=== PATIENT | female | born 1955 | race Caucasian/White ===

== ENCOUNTER 2017-02-23 13:47 | Observation (INO) | payer MEDICARE, OTHER ==
--- NOTE | ~2017-02-23 | HP ---
History And Physical [place] [id number] [facility] [place]. [address] NAME: BINTA BOSE : 55 STATUS : ADM Maia PAT#: [id number] AGE: 61 ADM/REG DATE : 02/23/17 MR#: [id number] REPORT SERV DATE: 02/23/17 DICTATED BY: EZEKIEL GROVER DATE: 02/23/17 REPORT STATUS : Draft TRANSCRIBED BY: MODL DATE: 02/23/17 DATE OF ADMISSION: 02/23/2017 CARDIOLOGY ADMISSION HISTORY AND PHYSICAL IDENTIFYING DATA: The patient is a 61-year-old woman with a history of myasthenia gravis on pyridostigmine and IVIG. CHIEF COMPLAINT: One year history of progressively worsening exertional burning type chest pain with radiation to the neck. HISTORY OF PRESENT ILLNESS: Ms. Bose is a 61-year-old woman with a history of myasthenia gravis. She has a roughly one year history of chest pain. She describes this as a burning substernal sensation which radiates to her neck, jaw, and ears. The patient has had previous cardiovascular workup, most recently including a pharmacologic stress with myocardial perfusion imaging performed at [facility]. The patient was seen in the emergency room at that facility. Myocardial infarction was apparently ruled out. The stress test was normal, and the patient was discharged to home. The patient was referred to Dr. Aaron Martinez by her primary care provider. It was Dr. Martinez's opinion that the patient most likely having symptoms related to either myasthenia gravis or treatment thereof or possibly gastroesophageal reflux disease. The patient has been placed on omeprazole, and takes Mylanta. She reports that these are not effective in eliminating her chest pain. She reports the chest pain is exertional and associated with shortness of breath, though she denies nausea or diaphoresis. She reports the chest pain is reliably relieved with sublingual nitroglycerin, though this causes headache and hypertension, the patient is reluctant to take nitroglycerin at home. She denies orthopnea, paroxysmal nocturnal dyspnea, palpitations, dizziness, or syncope. The patient and her report multiple emotional stressors recently, including the of the patient's brother who had Raysa Gehrig disease, as well as the recent anniversary of her son, who apparently was killed four years ago. PAST MEDICAL HISTORY: 1. Myasthenia gravis. 2. Hypertension. 3. Previous history of stroke, diagnosed with MRI. 4. Possible dyslipidemia. PAST SURGICAL HISTORY: 1. The patient has had a thymectomy for thymoma. 2. Total abdominal hysterectomy. 3. Cholecystectomy. 4. Right breast lumpectomy. 5. Bladder suspension. 6. Port-A-Cath placement. FAMILY HISTORY: The patient's father was diagnosed with coronary artery disease, and History And Physical [address] [address] NAME: BINTA BOSE : 55 STATUS : ADM Maia PAT#: [id number] AGE: 61 ADM/REG DATE : 02/23/17 MR#: [id number] REPORT SERV DATE: 02/23/17 DICTATED BY: EZEKIEL GROVER DATE: 02/23/17 REPORT STATUS : Draft TRANSCRIBED BY: DANIEL DATE: 02/23/17 underwent coronary artery bypass grafting surgery at approximately age 55. Her mother was diagnosed with ovarian cancer and eventually of complications related to this. SOCIAL HISTORY: The patient has a distant history of social smoking more than 30 years ago. She denies alcohol or drug use. She is with four children. ALLERGIES: THE PATIENT REPORTS AN IRON ALLERGY WHICH CAUSES FLANK PAIN, AND CHEST PAIN WITH IV THERAPY. HOME MEDICATIONS: 1. Amlodipine 5 mg p.o. daily. 2. Vitamin B12 1000 mcg intramuscular monthly. 3. Vasotec 20 mg p.o. daily. 4. Vitamin D 50,000 units p.o. Friday, Friday, and Friday. 5. Prozac 40 mg p.o. at bedtime. 6. Gabapentin 1600 mg p.o. three times daily. 7. IVIG administered q.[address] Grande. 8. Levothyroxine 125 mcg p.o. q.a.m. 9. Sublingual nitroglycerin 0.4 mg q.5 minutes p.r.n. chest pain. 10.Omeprazole 20 mg p.o. q.a.m. 11.Mestinon 60 mg p.o. five times daily. REVIEW OF SYSTEMS: A complete 12-system review was performed. This is noncontributory except for the pertinent positives and negatives noted in the history of present illness above. PHYSICAL EXAMINATION: VITAL SIGNS: Temperature is 98.2 degrees Fahrenheit, blood pressure is 140/67 mmHg, heart rate is 73 beats per minute and regular, respirations 18, and oxygen saturation is 96% on room air. CONSTITUTIONAL: The patient is an obese white woman, who appears mildly fatigued, but is otherwise normal, in no acute distress. EYES: PERRL, EOMI, clear conjunctiva. HEAD/MNT: NCAT with moist mucous membranes and grossly normal hard and soft palate. NECK: Supple with no obvious thyromegaly or lymphadenopathy CARDIOVASCULAR: Regular rhythm with normal S1 and physiologically split S2. No significant murmurs, rubs or gallops noted. PMI - normal location and character. Normal jugular venous pressure. No carotid bruits noted bilaterally. PULMONARY: Clear to auscultation bilaterally, no wheezing, rales or rhonchi noted. No dullness to percussion. Non-labored. ABDOMINAL: Soft, non-tender, non-distended with no hepatosplenomegaly noted. EXTREMITIES: No clubbing, cyanosis or edema. MUSCULOSKELETAL: Grossly normal strength and range of motion in all extremities INTEGUMENTARY: Skin appears intact with no bruises, wounds or active lesions noted NEURO/PSYC: Alert and oriented x3, with no dysarthria, facial droop or lateralizing weakness noted. History And Physical [address] [address] NAME: BINTA BOSE : 55 STATUS : ADM Maia PAT#: [id number] AGE: 61 ADM/REG DATE : 02/23/17 MR#: [id number] REPORT SERV DATE: 02/23/17 DICTATED BY: EZEKIEL GROVER DATE: 02/23/17 REPORT STATUS : Draft TRANSCRIBED BY: MODTerry DATE: 02/23/17 12-LEAD EKG: The 12-lead EKG shows normal sinus rhythm with no significant abnormality. CHEST X-RAY: The patient has a Port-A-Cath placed in the right subclavian position with its tip in the SVC. The x-ray is otherwise normal. LABORATORY DATA: The patient's white blood cell count is 7.4, hemoglobin 15, hematocrit 41, platelets 272. INR is 1.0. PTT is 32. Electrolytes shows a sodium of 138, potassium 4.0, chloride 105, CO2 of 31, BUN 11, creatinine 0.7, glucose 82, magnesium 2.2. Troponin is less than 0.02. ASSESSMENT AND PLAN: 1. Chest pain with features of unstable angina: At this time, the patient has had a noninvasive study which is normal. She continues to have multiple emergency room admissions for chest pain which has been refractory to medical therapy. I feel the most likely scenario is that the patient is experiencing symptoms related to IVIG or possibly pyridostigmine. However, the patient does have risk factors which include hypertension, positive family history, and possible peripheral arterial disease as evidenced by stroke. I have recommended cardiac catheterization for definitive diagnosis. Risks and benefits of coronary angiography including alternatives such as repeat stress testing with possible exercise stress testing were discussed with the patient. The patient does not feel she would be able to participate in an exercise treadmill stress test. She agrees to proceed with cardiac catheterization. This will be scheduled for tomorrow morning 02/25/2016. The patient will be started on aspirin 325 mg p.o. daily x1 and 81 mg daily thereafter. Should the patient prove to have coronary disease, we will make further recommendations. Should the patient's cardiac catheterization be normal, we will pursue a workup for a noncoronary etiology of the patient's symptoms. 2. Myasthenia gravis: At this time, the patient denies weakness, visual changes, or unusual dyspnea. 3. Hypertension: The patient will continue her current home medication regimen. We will consider increasing amlodipine dose if necessary for persistent hypertension. TRAMH/DALIAL Ezekiel Grover MD / [id number] CC: Ezekiel Grover MD
[2017-02-23 13:02] LABS: BASOPHILS 0.1 %; BASOPHILS ABSOLUTE 0.01 10/3/uL (0.0-0.16); EOSINOPHILS 3.4 %; EOSINOPHILS ABSOLUTE 0.25 10/3/uL (0.0-0.53); HEMATOCRIT 40.8 % (36.0-48.0); IMMATURE GRANULOCYTES 0.1 %; IMMATURE GRANULOCYTES ABSOLUTE 0.01 10/3/uL (0.0-0.11); MANUAL DIFF NO %; MEAN CORPUS HGB CONC 34.3 g/dL (32.0-36.0); MEAN CORPUSCULAR HEMOGLOB 29.7 pg (26.0-34.0); MEAN CORPUSCULAR VOLUME 86.4 fL (80-100); MONOCYTES 6.6 %; MONOCYTES ABSOLUTE 0.49 10/3/uL (0.21-1.20); NEUTROPHILS 50.8 %; NEUTROPHILS ABSOLUTE 3.77 10/3/uL (2.02-8.40); PLATELET COUNT 272 10/3/uL (150-400); RBC DISTRIBUTION WIDTH 12.6 % (12.0-16.0); RED CELL COUNT 4.72 10/6/uL (4.0-5.6); WHITE BLOOD CELLS 7.4 10/3/uL (4.5-10.5)
[2017-02-23 13:10] LABS: PARTIAL THROMBO TIME 31.9 SEC (22.5-37.2)
[2017-02-23 13:17] LABS: BUN (BLOOD UREA NITROGEN) 11 MG/DL (6-23); CALCIUM, SERUM 9.6 MG/DL (8.5-10.4); CHEST PAIN PROFILE TAT 0 Hrs 21 Mins; CHLORIDE, SERUM 105 MMOL/L (96-112); CO2 (CARBON DIOXIDE) 31 MMOL/L (24-34); CREATININE 0.69 MG/DL (0.55-1.02); GFR AFRICAN AMERICAN 109 ML/MIN (>=60); GFR NON AFRICAN AMERICAN 94 ML/MIN (>=60); GLUCOSE, SERUM 82 MG/DL (60-99); SODIUM, SERUM 138 MMOL/L (135-148); TROPONIN I <0.02 NG/ML (<0.05)
[2017-02-23] MEDS ORDERED: NORV5 PO (13:57)
[2017-02-23] MEDS ORDERED: PYRID60 PO (13:58)
[2017-02-23] MEDS ORDERED: LEVOTHYROXIN125 MCG PO (13:58)
[2017-02-23] MEDS ORDERED: VASOTEC20 MG PO (13:58)
[2017-02-23] MEDS ORDERED: NEUR800 PO (13:58)
[2017-02-23] MEDS ORDERED: B121000P IM (13:59)
[2017-02-23] MEDS ORDERED: VITD PO (13:59)
[2017-02-23] MEDS ORDERED: PRILO PO (13:59)
[2017-02-23] MEDS ORDERED: IVIGLIQ IV (14:00)
[2017-02-23] MEDS ORDERED: PROZAC40 MG PO (14:00)
[2017-02-23] MEDS ORDERED: NITROSTAT0.4 MG SL (14:01)
[2017-02-24 05:03] LABS: BASOPHILS 0.1 %; BASOPHILS ABSOLUTE 0.01 10/3/uL (0.0-0.16); EOSINOPHILS ABSOLUTE 0.27 10/3/uL (0.0-0.53); HEMATOCRIT 39.9 % (36.0-48.0); HEMOGLOBIN 13.3 g/dL (12.0-16.0); IMMATURE GRANULOCYTES 0.3 %; IMMATURE GRANULOCYTES ABSOLUTE 0.02 10/3/uL (0.0-0.11); LYMPHOCYTES 42.5 %; LYMPHOCYTES ABSOLUTE 2.84 10/3/uL (0.67-4.30); MEAN CORPUS HGB CONC 33.3 g/dL (32.0-36.0); MEAN CORPUSCULAR VOLUME 86.9 fL (80-100); MEAN PLATELET VOLUME 10.1 fL (9.2-13.0); MONOCYTES 6.6 %; MONOCYTES ABSOLUTE 0.44 10/3/uL (0.21-1.20); NEUTROPHILS 46.5 %; PLATELET COUNT 245 10/3/uL (150-400); RED CELL COUNT 4.59 10/6/uL (4.0-5.6); WHITE BLOOD CELLS 6.7 10/3/uL (4.5-10.5)
[2017-02-24 05:04] LABS: MANUAL DIFF NO %
[2017-02-24 05:14] LABS: BUN (BLOOD UREA NITROGEN) 10 MG/DL (6-23); CALCIUM, SERUM 9.4 MG/DL (8.5-10.4); CHLORIDE, SERUM 105 MMOL/L (96-112); CHOL/HDL RATIO(NOT ORDER) 4.4 (0-5); CHOLESTEROL 201 MG/DL (< 200); CO2 (CARBON DIOXIDE) 29 MMOL/L (24-34); CREATININE 0.74 MG/DL (0.55-1.02); GFR AFRICAN AMERICAN 101 ML/MIN (>=60); GFR NON AFRICAN AMERICAN 87 ML/MIN (>=60); GLUCOSE, SERUM 94 MG/DL (60-99); HDL CHOLESTEROL 46 MG/DL (> 49); LDL CHOLESTEROL 120 MG/DL (< 130); NON-HDL CHOLESTEROL 155 MG/DL (< 160); POTASSIUM, SERUM 3.7 MMOL/L (3.5-5.3); SODIUM, SERUM 140 MMOL/L (135-148); TRIGLYCERIDE 179 MG/DL (< 150)
[2017-02-24] MEDS ORDERED: LIPITOR40 (16:50)
[2017-02-24] MEDS ORDERED: IMDUR30 PO (16:51)
== END 2017-02-24 17:27 | disposition home or self-care (01) ==
LOC: ER 13:47 → CDU1 20:09 → CDU2 20:51
PROVIDERS: Emergency Medicine; Internal Medicine Cardiovascular Disease
PROC: 4A023N8 Measurement of Cardiac Sampling and Pressure, Bilateral, Percutaneous Approach (ICD-10-PCS; principal; 2017-02-23)
DX: R07.9 Chest pain, unspecified (principal); G70.00 Myasthenia gravis without (acute) exacerbation; I10 Essential (primary) hypertension; E03.9 Hypothyroidism, unspecified; F32.9 Major depressive disorder, single episode, unspecified; Z86.73 Personal history of transient ischemic attack (TIA), and cerebral infarction without residual deficits; Z90.710 Acquired absence of both cervix and uterus; Z90.49 Acquired absence of other specified parts of digestive tract; Z98.890 Other specified postprocedural states; Z87.891 Personal history of nicotine dependence; Z79.899 Other long term (current) drug therapy; Z88.8 Allergy status to other drugs, medicaments and biological substances; Z79.82 Long term (current) use of aspirin
CPT/HCPCS: 71010; 80048; 80061; 83735; 84484; 85025; 85610; 85730; 93005; 93458; 96374; 99152; 99153; 99285; A9270-GY; C1769; C1887; C1894; G0378; J2250; J2405; J3010; Q9967